=== PATIENT | female | born 1945 | race Caucasian/White ===

== ENCOUNTER 2024-03-25 17:13 | Emergency (ER) | payer MEDICARE, OTHER, SELFPAY ==
[2024-03-25 17:17] VITALS: BP 127/74
[2024-03-25 20:08] VITALS: BP 127/70
--- NOTE | 2024-03-25 21:15 | ED.GENMED ---
History of Present Illness
General
Chief Complaint: Abdominal Pain
Source: patient
Exam Limitations: none
Time Seen by Provider: 03/25/24 20:56
History of Present Illness
History of Present Illness:
this is a 78 year old female that comes in with c/o abd pain. States that she has been at [facility] for rehab after surgery. States that she had abd surgery done on the and had an Colostomy. States that she has had some sharp abd pain and that
there has not been any output in the bag for the past few days. States that she was on Clear liquids and was just increased to solids 2 days ago and then this started. States that she is nauseated and vomited once last night. States that the pain
is in the middle of the abd. Denies any fever, chills, chest pain, SOB< headache, urinary burning.
Past History
Past History
ED Past Medical History: HTN and Other (Schottky's ring. )
ED Past Surgical History: Bowel resection (Colostomy) and Orthopedic (Right knee replacement. Left hip replacement)
Social History
Tobacco: Non-smoker
Alcohol: Occasional
Personal:
Living: assisted living ([facility] for rehab)
Review of Systems
Review of Systems
All Other Systems: ROS reviewed and negative except as documented in HPI and ROS
Constitutional: Reports no symptoms; Denies fever or chills
EENT: Reports no symptoms
Respiratory: Reports no symptoms; Denies cough or trouble breathing
Cardiac: Reports no symptoms; Denies chest pain
ABD/GI: Reports abdominal pain, nausea, vomiting and other (No stool from Colostomy bag)
: Reports no symptoms; Denies dysuria, frequency or urgency
Musculoskeletal: Reports no symptoms
Skin: Reports no symptoms
Neurological: Reports dizzy (Since she had her knee replaced); Denies headache
Psychiatric: Reports no symptoms
Phy Exam
General Physical Exam
General Presentation: no apparent distress
General age: appears stated age
General Skin: warm and dry
General Habitus: elderly
General Mental: alert
General Hydration: appears well hydrated
ENT Exam
ENT Exam: TM's normal, pharynx normal and neck supple
Eye Exam
Eye Exam: EOMI
Cardiovascular Exam
Cardiovascular Exam: regular rate/rhythm, no edema and normal peripheral pulses
Pulmonary Exam
Pulmonary Exam: lungs clear, no respiratory distress, no rales, chest non tender, no crackles, no rhonchi, no wheezing and no cough
Gastrointestinal Exam
Gastrointestinal Exam: normal bowel sounds, soft, no organomegaly, no pulsatile mass, non distended, tender (Tenderness with palpation over the left lower abd) and other (Lower abd mid line surgical incision with sherri intact. )
Musculoskeletal Exam
Musculoskeletal Exam: full ROM and no edema
Skin Exam
Skin Exam: normal color, warm/dry, no rash and no petechia
Psychiatric Exam
Psychiatric Exam: normal mood/affect
Course
Orders/Labs/Results
Orders:
Orders
03/25/24 17:25
Obstruct Series W/PA Chest [CR Obstruct Series W/pa Chest] Urgent
Comment:
Reason For Exam: no output in ostomy
03/25/24 21:13
0.9% Sodium Chloride 1000 ml [Nss] 1,000 ml IV BOLUS
Iohexol [Omnipaque] See Protocol PO NOW STA
03/25/24 21:14
CT Abd/pel W Iv And Oral Contr Urgent
Comment:
Reason For Exam: Recent Ostomy with no output
03/25/24 21:23
Ondansetron Injectable [Zofran] 4 mg IV NOW STA
03/25/24 21:27
Complete Blood Count/With Diff Urgent
Comprehensive Metabolic Panel Urgent
03/25/24 22:01
Lactic Acid Urgent
Abnormal Lab Results
03/25/24
21:27
WBC 15.7 H 10^3/uL
(4.8-10.8)
RBC 4.11 L 10^6/uL
(4.20-5.40)
Hct 35.7 L %
(37.0-47.0)
Plt Count 637 H 10^3/uL
(130-400)
Abs Immat Gran (auto) 0.1 H 10^3/uL
(0-0.05)
Absolute Neuts (auto) 12.1 H 10^3/uL
(1.4-6.5)
Absolute Monos (auto) 1.4 H 10^3/uL
(0.1-0.6)
Immature Gran % 0.8 H %
(0-0.5)
Neutrophils % 76.9 H %
(42.2-75.2)
Lymphocytes % 11.3 L %
(20.5-51.1)
Sodium 134 L mmol/L
(135-145)
Glucose 105 H mg/dl
(70-99)
Total Protein 6.2 L g/dl
(6.3-8.2)
03/25/24 21:27
03/25/24 21:27
Leukocytosis, Thrombocythemia, Glucose nonfasting. Total protein slightly low. Lactic acid normal at 1.4
Vital Signs
Initial and Last Documented VS:
Initial Vital Signs
Temp Pulse Resp BP Pulse Ox
98.1 F 89 17 127/74 97
03/25/24 17:17 03/25/24 17:17 03/25/24 17:17 03/25/24 17:17 03/25/24 17:17
Last Documented Vital Signs
Temp Pulse Resp BP Pulse Ox
97.9 F 94 22 156/66 95
03/25/24 20:08 03/26/24 00:45 03/26/24 00:45 03/25/24 23:00 03/26/24 00:45
Desktop Publisher consulted with Physician
Desktop Publisher consulted with physician?: Yes
Name of Physician Consulted: Dr. Penaloza and Dr. Lew
MDM/Problems Addressed
Differential Diagnosis Includes:
Bowel obstruction,
MDM/Problems Addressed:
This is a 78 year old female that comes in with c/o no output from her Colostomy for the past 2 days. States that she gets sharp abd pain and that she vomited last night
Will check labs and get CT scan. Will also give IV fluids
CT cont- partially obscured by streak artifact from left hip replacement. Hysterectomy. Mild atelectasis at the lung bases. MIld cardiomegaly. Left hip replacement. Prominent degenerative changes within the lumbar spine.
Back into see patient and daughter. Patient has good bowel sounds. Patient has had over 300ml of stool out while here. Explained that the CT does show a partial small bowel obstruction. Will have patient stay on liquids tomorrow and advance her diet
as tolerated. Patient to return with increased pain, or if there is no stool output.
Chronic conditions affecting care: Previous abdomnial surgery
Acute Exacerbation and/or Progression of Chronic Illness: Previous abdomnial surgery
*Radiology
Radiology exam reviewed: preliminary read by ED provider (Obstruction series- Chest negative for active disease. Concern for Bowel obstruction), radiology read reviewed (Obstruction series- Radiographic findings suggest small bowel obstruction. No
active pulmonary disease. CT night hawk- left lower quadrant colostomy. Mild liquid content throughout the colon suggestive of diarrhea/gastroenteritis. There are severeal distended small bowel loops in the left upper ), all reviewed NAD by ED
Provider (CT cont-quadrant measuring up to 5.0cm involving proximal and mid jejunum. Small bowel loops gradually taper to normal caliver in the mid abdomen. There are also multiple fluid distended loops of small bowel in the right abdomen which do
not appear abnormally dilated. This is felt likely related to ) and other (CT cont-partial obstuction. Diverticulosis of the distal sigmoid colon. Midline incision with skin sherri and subcutaneous fat stranding. Normal gallbladder. No biliary
dilation. No hydronephrosis or obstructing urinary calculi. Subcentimeter right renal cyst. Bladder is unremarkable and partially )
*Pulse Oximetry
Patient hypoxic: no
*EKG
Interpreted by ED Provider?: NA
*Critical Care Note
Total Time (30-74mins, 75-104mins- exclusive of procedures): Not Applicable
ED Attending Note
-
Portions of this chart may have been created with voice recognition software.� Occasional wrong word or��sound alike� substitutions may have occurred due to the inherent limitations of voice recognition software.
Discharge Plan
Departure
Patient Disposition: Group Home/SNF
Date of Disposition: 03/26/24
Time of Disposition: 01:10
Patient with high blood pressure during this ER visit?: Yes
Condition: Good
Covid-19: Not Applicable
Discharge Problem:
Partial small bowel obstruction
Instructions: Small Bowel Obstruction (DC), BLOOD PRESSURE
Referrals:
NONE,* [Family Provider] -
Activity Restrictions/Additional Instructions:
As discussed, your CT scan shows that there is a partial small bowel obstruction. Since your colostomy has started to function after the oral contrast it is felt that this may be working itself out on its own. Please stay on a liquid diet for the
next 24 hours and then advance your diet as tolerated. Follow up with the family doctor for further evaluation. IF YOU HAVE INCREASED OR CHANGING ABDOMINAL PAIN, VOMITING, OR YOU HAVE ANY OTHER CONCERNS PLEASE RETURN TO THE EMERGENCY ROOM.
Interventions
Interventions:
*Risk Screen - Suicide Last Done: 03/25/24 17:17
*General Assessment Last Done: 03/25/24 21:00
*Neglect/Abuse Screening Last Done: 03/25/24 21:00
ED- Fall Risk Assessment Last Done: 03/25/24 21:00
*ED COVID-19 Vaccine History Last Done: 03/25/24 21:16
EB-Kbeptl-Neqpiktefn Assessment Last Done: 03/25/24 21:00
Discharge Date and Time
Print Language: [id number]
[2024-03-25] MEDS: NSS 1000 IV (21:29)
[2024-03-25] MEDS: OMNIPAQUE 50 ML PO (21:35)
[2024-03-25] MEDS: ZOFRAN 4 MG IV (21:36)
[2024-03-25 21:43] VITALS: BP 141/93
[2024-03-25 21:48] LABS: % Basophils 0.5 % (0-2); % Eosinophils 1.5 % (0-6); % Immature Granulocytes 0.8 % (0-0.5); % Lymphocytes 11.3 % (20.5-51.1); % Neutrophils 76.9 % (42.2-75.2); Absolute Basophils 0.1 10^3/uL (0-0.2); Absolute Eosinophils 0.2 10^3/uL (0-0.7); Absolute Immature Granulocytes 0.1 10^3/uL (0-0.05); Absolute Lymphocytes 1.8 10^3/uL (1.2-3.4); Absolute Monocytes 1.4 10^3/uL (0.1-0.6); Absolute Neutrophils 12.1 10^3/uL (1.4-6.5); Hematocrit 35.7 % (37.0-47.0); Mean Corp Hgb Conc. 33.6 g/dL (33.0-37.0); Mean Corpuscular Hgb 29.2 pg (27.0-31.0); Mean Corpuscular Volume 86.9 fL (81.0-99.0); Mean Platelet Volume 9.4 fL (7.4-10.4); Nucleated Red Blood Cells % 0 %; Platelet Count 637 10^3/uL (130-400); Red Blood Cell Count 4.11 10^6/uL (4.20-5.40); Red Cell Dist. Width 13.9 % (11.5-14.5); White Blood Cell Count 15.7 10^3/uL (4.8-10.8)
[2024-03-25 22:00] VITALS: BP 176/78
[2024-03-25 22:08] LABS: ALT (SGPT) 17 U/L (0-35); AST (SGOT) 21 U/L (14-36); Albumin 3.7 g/dl (3.5-5.0); Alkaline Phosphatase 122 U/L (38-126); Blood Urea Nitrogen 8 mg/dl (7-17); Calcium 9.8 mg/dl (8.4-10.2); Carbon Dioxide 22 mmol/L (22-30); Chloride 99 mmol/L (98-107); Glucose 105 mg/dl (70-99); Potassium 4.3 mmol/L (3.5-5.1); Sodium 134 mmol/L (135-145); Total Bilirubin 0.7 mg/dl (0.2-1.3); Total Protein 6.2 g/dl (6.3-8.2); eGFR 57.66
[2024-03-25 22:26] VITALS: BP 173/74
[2024-03-25 22:27] LABS: Lactic Acid 1.4 mmol/L (0.7-2.0)
[2024-03-25 23:00] VITALS: BP 156/66
[2024-03-26 01:02] VITALS: BP 145/76
== END 2024-03-26 01:30 ==
LOC: EMR 17:13
PROVIDERS: Clinical Nurse Specialist Family Health; EMERGENCY PHYSICIAN Emergency Medicine
DX: K56.600 Partial intestinal obstruction, unspecified as to cause (principal); I10 Essential (primary) hypertension; Z93.3 Colostomy status
CPT/HCPCS: 99284; 96374; 96361; 74022; 74177; 80053; 83605; 85025; Q9967